=== PATIENT | male | born 1970 | race Caucasian/White ===

== ENCOUNTER 2019-06-25 10:15 | Emergency (ER) | payer SELFPAY ==
--- NOTE | 2019-06-25 10:33 | ED ---
Lower Extremity - HPI Summary HPI Summary: Patient is a 49-year-old male who presents emergency department for a left ankle injury that occurred just prior to arrival. 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 Patient states he fell about 3-4 feet. He landed on his feet without head injury or loss of consciousness. Symptoms are mild in severity. Patient unable family secondary to pain. Denies numbness, tingling or weakness. Walking makes symptoms worse. Nothing makes symptoms better. - History of Current Complaint Chief Complaint: EDExtremityLower Stated Complaint: LEFT ANKLE INJURY AFTER FALL PER PT Time Seen by Provider: 06/25/19 10:23 Hx Obtained From: Patient Pain Intensity: 7 - Allergies/Home Medications Allergies/Adverse Reactions: Allergies Allergy/AdvReac Type Severity Reaction Status Date / Time ketamine Allergy Hallucinati Verified 06/25/19 10:20 ons Penicillins Allergy Hives Verified 06/25/19 10:20 Home Medications: Home Medications NK [No Home Medications Reported] 06/25/19 [History Confirmed 06/25/19] PMH/Surg Hx/FS Hx/Imm Hx Previously Healthy: Yes Infectious Disease History: No Infectious Disease History: Denies: Traveled Outside the [place] in Last 30 Days - Family History Known Family History: Positive: Non-Contributory - Social History Occupation: Employed Full-time Lives: With Family Review of Systems Positive: Other - left ankle pain Skin: Negative Neurological: Negative Negative: Weakness, Paresthesia, Numbness All Other Systems Reviewed And Are Negative: Yes Physical Exam Triage Information Reviewed: Yes Vital Signs On Initial Exam: Initial Vitals Temp Pulse Resp BP Pulse Ox 97.6 F 95 20 143/110 96 06/25/19 10:17 06/25/19 10:17 06/25/19 10:17 06/25/19 10:17 06/25/19 10:17 Vital Signs Reviewed: Yes Appearance: Positive: Well-Appearing - Pt. sitting on bed in NAD. Skin: Positive: Warm, Dry Head/Face: Positive: Normal Head/Face Inspection Eyes: Positive: Normal, EOMI Neck: Positive: Supple Musculoskeletal: Positive: Other - Edema and pain over left latteral malleolus. No breaks in skin. Good pedal pulse. NO proximal tib/fib or knee pain. Neurological: Positive: Normal, CN Intact II-III Psychiatric: Positive: Affect/Mood Appropriate Procedures - Sedation Patient Received Moderate/Deep Sedation with Procedure: No - Splinting Left Lower Extremity Pre-Made Type: aircast Pre-Proc Neuro Vasc Exam: normal Post-Proc Neuro Vasc Exam: normal Splint Applied by Provider: [facility] - Vital Signs Vital Signs Temp Pulse Resp BP Pulse Ox 06/25/19 10:17 97.6 F 95 20 143/110 96 - Laboratory Lab Statement: Any lab studies that have been ordered have been reviewed, and results considered in the medical decision making process. Lower Extremity Course/Dx - Course Course Of Treatment: Pt. with isolated left ankle injury. He declines pain medication. Xrays negative for fx or dislocation per radiology. Air splint and Orlin wrap placed for comfort. Ice and elevation intermittently. Tylenol or Motrin for pain as directed. Activity as tolerated. Patient notes he is in the area for work and has a family doctor in his home town to follow up with pain persists. Patient understands and agrees with plan. - Diagnoses Differential Diagnosis/HQI/PQRI: Positive: Dislocation, Fracture (Closed), Sprain, Strain Provider Diagnoses: Ankle sprain Discharge ED - Sign-Out/Discharge Documenting (check all that apply): Patient Departure - Discharge Plan Condition: Good Disposition: HOME Patient Education Materials: Ankle Sprain (ED) Referrals: [facility] [Outside] Additional Instructions: Follow up with your PCP within 2-3 weeks if symptoms persist Ice and elevate intermittently Tylenol or Motrin for pain as directed Activity as tolerated Return to ER if symptoms change or worsen - Billing Disposition and Condition Condition: GOOD Disposition: Home - Attestation Statements Provider Attestation: I was available for consult. This patient was seen by the [facility]. The patient was not presented to, seen by, or examined by me. Christian Eugene MD
[2019-06-25 11:27] VITALS: BP 141/96
== END 2019-06-25 11:20 | disposition home or self-care (01) ==
LOC: ED 10:15
DX: S93.402A Sprain of unspecified ligament of left ankle, initial encounter (principal); W17.89XA Other fall from one level to another, initial encounter; Y92.89 Other specified places as the place of occurrence of the external cause; Y99.0 Civilian activity done for income or pay; Z88.4 Allergy status to anesthetic agent; Z88.0 Allergy status to penicillin
CPT/HCPCS: 99281